=== PATIENT | male | born 2000 | race Caucasian/White ===

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

== ENCOUNTER 2022-01-28 | Emergency (ER) | payer OTHER, SELFPAY ==
[2022-01-28 00:04] VITALS: BP 137/92; PULSE 86; RESP 18; TEMP 36.6; O2SAT 97
--- NOTE | 2022-01-28 01:10 | ED.GENADULT ---
HPI - General Adult General Chief complaint: Unspecified Stated complaint: Fatigue, Nausea Time Seen by Provider: 01/28/22 00:43 Source: patient Mode of arrival: ambulatory Limitations: no limitations History of Present Illness HPI narrative: Patient is a 21-year-old male here due to I need an excuse for work and school I have missed school and work for the past 5 days . Patient states that he has [place]'s disease and takes prednisone but unable to fill it since his doctor would not refill it last week because I miss my appointment, but it is good now he called in a refill and I just need to pick it up . Patient is just here for work and school excuse, since I did offer to call the prednisone in but refused since he already has a refill that his doctor called in. Patient has no other complaints. Related Data Home Medications Medication Instructions Recorded Confirmed fludrocortisone 0.1 mg PO DIRECTED 09/13/21 09/13/21 prednisone 5 mg PO DIRECTED 09/13/21 09/13/21 Allergies Allergy/AdvReac Type Severity Reaction Status Date / Time No Known Allergies Allergy Mild Unverified 07/24/08 07:26 Review of Systems Review of Systems: All systems reviewed & are unremarkable except as noted in HPI and below PMFSH Past Medical History Medical History Addisons disease Surgical History Surgical History No significant past surgical history Social History Social History Gender identity (if verbalized by the patient): Male Exam Const: General: cooperative, healthy appearing, comfortable, no acute distress, well developed, alert and awake; No confusion Orientation/consciousness: oriented to person, oriented to place, oriented to time, patient oriented x3 and No confusion Limitations: no limitations HENMT: Head: normal to inspection, normocephalic and atraumatic Ears: hearing grossly normal bilaterally, TM normal on the right and TM normal on the left General nose exam: Normal external nose present, Normal nares present and No nasal discharge present Face and sinus: normal facial exam Mouth: Yes Normal oral and palatal mucosa present, Yes lip normal, Yes tongue normal and Yes oropharynx normal Throat: posterior oropharynx normal, tonsils normal and uvula midline Eyes: General: appearance normal, both eyes and all related structures Pupils: Equal, round and reactive pupils present EOM: EOMs intact bilaterally Neck: Neck: normal visual inspection, full ROM, no lymphadenopathy and no meningeal signs Chest: Chest palpation & inspection: normal inspection of the chest Resp: Effort & Inspection: normal respiratory effort, able to speak in complete sentences, no respiratory distress and not tachypneic Auscultation: clear to auscultation bilaterally, no crackles, no rales, no rhonchi and no wheezes Cardio: Rate: regular rate Rhythm: regular rhythm GI: Inspection: normal to inspection GI Palp: No abdominal tenderness, Yes Soft to palpation, No Tenderness to palpation present (GI), No Guarding due to palpation present (GI), No Rigid due to palpation and No Rebound tenderness present Auscultation: normal bowel sounds : General: Yes no CVA tenderness Back/Spine/Pelvis: Back: no CVA tenderness Skin: General skin exam: normal color, no rashes or lesions noted, elasticity normal and turgor normal Neuro: General: oriented to person, oriented to place, oriented to time, patient oriented x3, tone normal, moves all extremities, Normal light touch and pain sensation, no meningeal signs, no focal motor deficits, CN's II-XI intact bilaterally and No confusion Cranial nerves: Yes Equal, round and reactive pupils present Speech: No Abnormal speech present Sensory Exam: No Sensory deficit (Neuro) Extrem: General: normal to inspection, full ROM and capillary ref
== END 2022-01-28 01:32 | disposition home or self-care (01) ==
PROVIDERS: Emergency Provider Emergency Medicine; PCP Pediatrics
DX: Z02.89 Encounter for other administrative examinations (principal); E27.1 Primary adrenocortical insufficiency
CPT/HCPCS: 99281

== ENCOUNTER 2022-03-14 11:24 | Outpatient (CLI) | payer OTHER, SELFPAY ==
[2022-03-14 20:27] LABS: Alanine Aminotransferase 21 U/L (6-50); Albumin Level 4.9 g/dL (3.5-5.1); Alkaline Phosphatase 65 U/L (38-126); Anion Gap 6 mmol/L (8-16); Aspartate Amino Transferase 22 U/L (17-59); Bilirubin,Total 0.4 mg/dL (0.2-1.3); Blood Urea Nitrogen 12 mg/dL (9-20); Calcium 9.3 mg/dL (8.4-10.2); Carbon Dioxide 27 mmol/L (22-30); Chloride 105 mmol/L (98-107); Estimated Glomerular Filt Rate > 60; Glucose 86 mg/dL (65-110); Potassium 3.9 mmol/L (3.4-5.0); Sodium 138 mmol/L (137-145)
[2022-03-14 20:29] LABS: Hemoglobin A1C 5.2 % (<5.7); Immunoglobulin A 91 mg/dL (70-400)
[2022-03-14 20:42] LABS: T4 Thyroxine 7.99 ug/dL (5.53-11.0)
[2022-03-17 19:54] LABS: Tissue Transglutaminase IgA Ab 128.6 U/mL (<15.0)
[2022-03-17 20:28] LABS: Adrenocorticotropic Hormone 75 pg/mL (6-50)
[2022-03-21 07:58] LABS: PRA 0.27 ng/mL/h (0.25-5.82)
== END 2022-03-14 11:25 | disposition home or self-care (01) ==
PROVIDERS: PCP Pediatrics; Visit Provider Pediatrics Pediatric Endocrinology
DX: E27.1 Primary adrenocortical insufficiency (principal)
CPT/HCPCS: 36415; 80053; 82024; 82088; 82607; 82784; 83036; 83516; 84244; 84436; 84443

== ENCOUNTER 2022-03-27 17:02 | Emergency (ER) | payer OTHER, SELFPAY ==
[2022-03-27 17:04] VITALS: BP 158/91; PULSE 114; RESP 16; TEMP 36.6; O2SAT 98
--- NOTE | 2022-03-27 17:11 | ED.GENADULT ---
HPI - General Adult General Chief complaint: Skin/Abscess/Foreign Body Stated complaint: rash?? Time Seen by Provider: 03/27/22 17:09 Source: patient Mode of arrival: ambulatory Limitations: no limitations History of Present Illness HPI narrative: Patient is a 22-year-old male who presents the ED with report of intermittent rash and chafing to his groin. Patient reports having chafing in his inner groins for the past 3 days. He states the irritation is much worse when he is walking, when his thighs are rubbing against each other. He also reports having intermittent rash over the last 3 days, which he reports consists of redness and small heat-like bumps, which is worse when he is sweating The rash comes and goes. He denies any rash currently, but states that chafing was bothering him worse today at work, so his boss told him to come into the ED. Patient requesting a work note. Denies any fever, chills, pimple-like lesions, penile discharge, dysuria, hematuria, testicular pain or swelling. Patient has a history of [place]'s disease and takes prednisone and fludrocortisone. He also states he takes a potassium supplement. He does not currently follow with a physician for his medical problems. Related Data Home Medications Medication Instructions Recorded Confirmed fludrocortisone 0.1 mg tablet 0.1 mg PO DIRECTED 09/13/21 09/13/21 prednisone 5 mg tablet 5 mg PO DIRECTED 09/13/21 09/13/21 Allergies Allergy/AdvReac Type Severity Reaction Status Date / Time No Known Allergies Allergy Mild Unverified 03/27/22 17:07 Review of Systems Review of Systems: CONSTITUTIONAL: Denies fever, chills. GASTROINTESTINAL: Denies nausea, vomiting. GENITOURINARY: Denies penile discharge, testicular pain, testicular swelling, dysuria, or hematuria. SKIN: Reports chafing to bilateral groins, intermittent heat like rash. Denies pimple-like lesions. MUSCULOSKELETAL: Denies back pain. All systems reviewed & are unremarkable except as noted in HPI and below PMFSH Past Medical History Medical History Addisons disease Surgical History Surgical History No significant past surgical history Social History Social History (Updated 03/27/22 @ 17:45 by Monica Phillips PA-C) Smoking status: Never smoker Gender identity (if verbalized by the patient): Male Exam Narrative: GENERAL: Well appearing, well-nourished, non-toxic, in no acute distress. HEAD: Normocephalic, atraumatic. NECK: Supple. No adenopathy, no masses. RESPIRATORY: Airway patent, respirations nonlabored. CARDIOVASCULAR: Regular rate and rhythm without murmurs, rubs, or gallops. Radial pulses 2+ and equal bilaterally. MUSCULOSKELETAL: Moves all extremities. Strength/ROM intact without gross deformities. SKIN: Warm, dry, normal color. Mild tinea-like rash to bilateral inguinal regions with surrounding redness/skin irritation. Distinct borders, no satellite lesions, crusting, pimple-like lesions. No testicular TTP or swelling. NEURO: A&O X3. Speech clear. Cranial nerves II-XII grossly intact. Steady gait. No ataxic movements. PSYCHIATRIC: Appropriate mood and affect. Normal interaction. Course Vital Signs Vital signs: Vital Signs Temperature 97.8 F 03/27/22 17:04 Pulse Rate 114 H 03/27/22 17:04 Respiratory Rate 16 03/27/22 17:04 Blood Pressure 158/91 H 03/27/22 17:04 Pulse Oximetry 98 03/27/22 17:04 Oxygen Delivery Room Air 03/27/22 17:04 Temperature 97.8 F 03/27/22 17:04 Pulse Rate 114 H 03/27/22 17:04 Respiratory Rate 16 03/27/22 17:04 Blood Pressure 158/91 H 03/27/22 17:04 Pulse Oximetry 98 03/27/22 17:04 Oxygen Delivery Room Air 03/27/22 17:04 Medical Decision Making MDM Narrative Medical decision making narrative: Patient presented to ED with intermittent rash/chafing to bilateral inguinal regions. Patien
[2022-03-27 17:44] LABS: Anion Gap 6 mmol/L (8-16); Blood Urea Nitrogen 14 mg/dL (9-20); Calcium 9.2 mg/dL (8.4-10.2); Carbon Dioxide 28 mmol/L (22-30); Chloride 106 mmol/L (98-107); Estimated CRCL calculation 163 ml/min; Estimated Glomerular Filt Rate > 60; Glucose 113 mg/dL (65-110); Potassium 3.4 mmol/L (3.4-5.0); Sodium 140 mmol/L (137-145)
== END 2022-03-27 17:55 | disposition home or self-care (01) ==
PROVIDERS: Physician Assistant; Emergency Provider Emergency Medicine; PCP Pediatrics
DX: B35.6 Tinea cruris (principal); E27.1 Primary adrenocortical insufficiency
CPT/HCPCS: 36415; 80048; 99283

== ENCOUNTER 2022-04-11 15:46 | Emergency (ER) | payer OTHER, SELFPAY ==
[2022-04-11 15:50] VITALS: BP 142/93; PULSE 75; RESP 16; TEMP 36.6; O2SAT 99
[2022-04-11 15:52] VITALS: BP 142/79; PULSE 77; RESP 18; TEMP 36.7; O2SAT 99
[2022-04-11 15:57] VITALS: RESP 18; O2SAT 99
[2022-04-11] MEDS: predniSONE 5 MG TABLET PO (16:15)
[2022-04-11] MEDS: FLUDROCORTISONE ACETATE 0.1 MG TABLET PO (16:57)
[2022-04-11 16:58] VITALS: BP 133/77; PULSE 70; RESP 18; O2SAT 98
[2022-04-11 17:29] LABS: Basophils Absolute Auto 0.1 K/mm3 (0.0-0.1); Basophils Percent Auto 0.8 % (0.2-1.2); Eosinophils Absolute Auto 0.2 K/mm3 (0-0.3); Eosinophils Percent Auto 2.4 % (0-4.4); Hematocrit 42.8 % (42.0-52.0); Hemoglobin 15.2 g/dL (14.0-18.0); Immature Granulocyte Absolute 0.02 K/mm3 (0.00-0.031); Immature Granulocyte Percent A 0.2 % (0-0.5); Lymphocytes Absolute Auto 4.08 K/mm3 (0.9-3.2); Mean Corpuscular HGB Conc 35.5 g/dl (32-36); Mean Corpuscular Hemoglobin 29.5 pg (26-34); Mean Corpuscular Volume 83.1 fl (80-100); Mean Platelet Volume 9.9 fl (7.4-10.4); Monocytes Absolute Auto 1.1 K/mm3 (0.1-0.6); Monocytes Percent Auto 11.4 % (2.6-8.5); Neutrophils Absolute Auto 3.8 K/mm3 (1.3-6.7); Neutrophils Percent Auto 41.2 % (45.5-73.1); Platelet Count Result 186 k/mm3 (150-375); Red Blood Count 5.15 M/mm3 (4.6-6.20); Red Cell Distribution Width 12.5 % (11.5-14.5); White Blood Count 9.3 K/mm3 (4.5-10.0)
[2022-04-11 17:48] LABS: Alanine Aminotransferase 28 U/L (6-50); Albumin Level 4.6 g/dL (3.5-5.1); Alkaline Phosphatase 60 U/L (38-126); Anion Gap 6 mmol/L (8-16); Aspartate Amino Transferase 25 U/L (17-59); Bilirubin,Total 0.4 mg/dL (0.2-1.3); Blood Urea Nitrogen 14 mg/dL (9-20); Calcium 8.8 mg/dL (8.4-10.2); Carbon Dioxide 26 mmol/L (22-30); Chloride 108 mmol/L (98-107); Estimated CRCL calculation 145 ml/min; Estimated Glomerular Filt Rate > 60; Glucose 84 mg/dL (65-110); Potassium 3.3 mmol/L (3.4-5.0); Sodium 140 mmol/L (137-145)
[2022-04-11] MEDS: POTASSIUM CHLORIDE 10 MEQ TABLET PO (18:16)
--- NOTE | 2022-04-11 18:28 | ED.GENADULT ---
HPI - General Adult General Chief complaint: Unspecified Stated complaint: Work Requires DR Note Time Seen by Provider: 04/11/22 15:52 History of Present Illness HPI narrative: Patient is a 22-year-old male with history of [place]'s disease here for evaluation of some lightheadedness today. He did not take his medications today, and patient states this is how he usually feels when he forgets to take his medications for [place]'s disease, which include prednisone and fludrocortisone. Patient largely presents for a work note, as he states that his work required him to be seen by a provider before returning. Denies nausea, vomiting, fevers, chills, headaches, syncope, chest pain or shortness of breath Related Data Home Medications Medication Instructions Recorded Confirmed fludrocortisone 0.1 mg tablet 0.1 mg PO DIRECTED 09/13/21 09/13/21 prednisone 5 mg tablet 5 mg PO DIRECTED 09/13/21 09/13/21 Allergies Allergy/AdvReac Type Severity Reaction Status Date / Time No Known Allergies Allergy Mild Unverified 04/11/22 15:59 Review of Systems Review of Systems: Gen.: Reports fatigue. Denies fevers or chills Eyes: Denies eye pain or visual change ENT: Denies congestion Respiratory: Denies shortness of breath or cough CV: Denies chest pain or palpitations GI: Denies abdominal pain nausea, emesis or diarrhea denies burning, urgency, frequency or hematuria Musculoskeletal: Denies back pain or muscle pain Neuro: Denies numbness, tingling, weakness or focal weakness Skin: Denies rash Except as documented, all other systems reviewed and negative PMFSH Past Medical History Medical History Addisons disease Surgical History Surgical History No significant past surgical history Social History Social History (Updated 03/27/22 @ 17:45 by Monica Phillips PA-C) Smoking status: Never smoker Gender identity (if verbalized by the patient): Male Exam Narrative: APPEARANCE: Well appearing, no pain in distress, well-nourished. Head: Normocephalic and atraumatic. EYES: PERRLA/EOMI, conjunctivae clear NOSE: No nasal drainage EARS: External ear normal in appearance THROAT: Oropharynx is clear. Mucous membranes are moist. NECK: Supple. No adenopathy, no masses. RESPIRATORY: Airway patent, respirations nonlabored. Clear to auscultation bilaterally, no rales, rhonchi, wheezing. CARDIOVASCULAR: Regular rate and rhythm without murmurs, rubs, or gallops. ABDOMINAL: Normoactive bowel sounds. Soft, nontender, nondistended. No rebound tenderness or guarding. MUSCULOSKELETAL: Extremities are warm and well-perfused. Moves all extremities well. No edema. NEURO: Normal speech. No focal neurologic deficits. SKIN: Skin is warm and dry. No rashes. PSYCHIATRIC: Normal affect/mood. Course Vital Signs Vital signs: Vital Signs Temperature 97.8 F 04/11/22 15:50 Pulse Rate 75 04/11/22 15:50 Respiratory Rate 16 04/11/22 15:50 Blood Pressure 142/93 H 04/11/22 15:50 Pulse Oximetry 99 04/11/22 15:50 Oxygen Delivery Room Air 04/11/22 15:50 Temperature 98.0 F 04/11/22 15:52 Pulse Rate 63 04/11/22 18:55 Respiratory Rate 18 04/11/22 18:55 Blood Pressure 144/86 H 04/11/22 18:55 Pulse Oximetry 98 04/11/22 18:55 Oxygen Delivery Room Air 04/11/22 15:52 Medical Decision Making MDM Narrative Medical decision making narrative: 22-year-old male here for evaluation of slight fatigue today after forgetting to take his medications for [place]'s disease. Patient's vital signs are normal, he is nontoxic-appearing. Patient has no hyponatremia to suggest addisonian crisis, his potassium was 3.3 which was repleted in the ED. Patient also takes a potassium supplement at home. Patient feels back at his baseline after giving him his home medications. Will provide with work note, discussed
[2022-04-11 18:55] VITALS: BP 144/86; PULSE 63; RESP 18; O2SAT 98
== END 2022-04-11 18:25 | disposition home or self-care (01) ==
PROVIDERS: Physician Assistant; Emergency Provider Emergency Medicine; PCP Pediatrics
DX: E27.1 Primary adrenocortical insufficiency (principal)
CPT/HCPCS: 36415; 80053; 85025; 99283; A9270; J7512